=== PATIENT | male | born 1955 | race Caucasian/White ===

== ENCOUNTER 2023-04-22 12:47 | Emergency (ER) | payer MEDICARE, SELFPAY ==
[2023-04-22 12:56] VITALS: BP 115/65; PULSE 76; RESP 18; TEMP 36.6; O2SAT 96; BMI 35.1
--- NOTE | 2023-04-22 12:58 | ECG_ITS ---
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 Measurements Intervals Martin Rate: 75 P: 0 MN: 0 QRS: -37 QRSD: 135 T: 93 QT: 393 QTc: 440 Interpretive Statements ATRIAL FIBRILLATION LEFT AXIS DEVIATION [QRS AXIS < -30] INTRAVENTRICULAR CONDUCTION DELAY [130+ ms QRS DURATION] SEPTAL MYOCARDIAL INFARCTION , OF INDETERMINATE AGE [40+ ms Q WAVE IN V1/V2] No previous ECG available for comparison Electronically Signed On 04-22-2023 16:48:18 CDT by Héctor Santo M.D. [email or web address]
--- NOTE | 2023-04-22 14:04 | XR_ITS ---
WS: [id number] Cervical spine, 3 views, 04/22/2023 Clinical Data: trauma/pain Comparison: None. Findings: There is an anterior cervical disc fusion at C4-C5 with a disc spacer between. No preverteb ral soft tissue swelling is seen. There are no compression fractures. The soft tissues of the neck an d the lung apices are unremarkable. The odontoid is normal. Impression: Anterior cervical disc fusion C4-C6.
[2023-04-22 14:10] VITALS: BP 112/65; PULSE 72; RESP 18; O2SAT 96
--- NOTE | 2023-04-22 14:25 | W.ED.FALL ---
HPI - Fall General: Chief Complaint: Fall Stated Complaint: Fall, neck pain, previous neck surgery Time Seen by Provider: 04/22/23 14:02 Source: patient Mode of arrival: ambulatory History of Present Illness: 68-year-old male presents emergency room complaining of neck pain. He stumbled and fell in a camper at home fell backward where he landed to the wind knocked out of him . He states he is concerned he may have hurt his neck he has had multiple neck surgeries in the past. When he came to the room staff had applied a cervical collar to his neck. MD complaint: fall Onset (ago): hour(s) Fall witnessed: yes, by family Place fall occurred: home Loss of consciousness: None Context: tripped/slipped Associated symptoms-after fall: Reports neck pain; Denies abdominal pain, chest pain, confusion, difficulty walking, headache(s), hematuria, lightheadedness, numbness, short of breath, vertigo or weakness Review of Systems Const: Denies: fever(s) or chills Card: Denies: chest pain or lightheadedness Resp: Denies: dyspnea GI: Denies: abdominal pain : Denies: dysuria, urinary frequency, urinary urgency or hematuria Musc: Reports: neck pain; Denies: back pain Skin/Breast: Denies: rash Neuro: Denies: headache(s), difficulty walking, vertigo or confusion Physical Exam Const: COMMON NORMALS: no acute distress GENERAL APPEARANCE: cooperative and comfortable ORIENTATION/CONSCIOUSNESS: Yes awake, Yes oriented to person, Yes oriented to place and Yes oriented to time HENMT: COMMON NORMALS: normocephalic, atraumatic and hearing grossly normal bilaterally HEAD & SCALP: normocephalic and atraumatic Resp: COMMON NORMALS: normal respiratory effort, No retractions, No use of accessory muscles and clear to auscultation bilaterally AUSCULTATION: clear to auscultation bilaterally Cardio: COMMON NORMALS: regular rate, regular rhythm and No murmurs present (Cardio) RATE: regular rate RHYTHM: regular rhythm GI: COMMON NORMALS: Soft to palpation and No hepatosplenomegaly present AUSCULTATION: Yes normoactive bowel sounds PALPATION: Yes Soft to palpation, No Tenderness to palpation present (GI), No Guarding due to palpation present (GI) and Yes No hepatosplenomegaly present Extremity: COMMON NORMALS: normal to inspection, capillary refill normal, no clubbing, cyanosis or edema, no calf tenderness and no pedal edema Neuro: SENSORIUM/ORIENTATION: Yes oriented to person, Yes oriented to place and Yes oriented to time OTHER: No focal neurologic deficits are noted Skin: COMMON NORMALS: no rashes or lesions noted GENERAL SKIN EXAM: no rashes or lesions noted Course Vital Signs: Vital signs: Vital Signs Temperature 97.8 F 04/22/23 12:56 Pulse Rate 78 04/22/23 15:11 Respiratory Rate 18 04/22/23 14:10 Blood Pressure 112/65 04/22/23 15:11 Pulse Oximetry 95 04/22/23 15:11 Oxygen Delivery Me thod Room Air 04/22/23 14:10 MDM - Fall Medical Decision Making X-rays cervical spine normal c-collar removed range of motion present mild discomfort at most. Can follow-up as needed Medical Records I reviewed the patient's medical records. Lab Data I reviewed the patient's lab results. All radiology interpretation(s) finalized by discharge Discharge Plan Discharge Patient Disposition: Home Clinical Impression: Cervicalgia Condition: Stable Prescriptions: New tizanidine 4 mg tablet 4 mg PO Q6H PRN (Reason: muscle spasticity) Qty: 20 0RF Rx Instructions: do not exceed 3 doses per 24 hrs diclofenac sodium 75 mg tablet,delayed release (DR/EC) 75 mg PO Q12H PRN (Reason: pain) Qty: 20 0RF Discharge Orders: Discharge ED (Routine); Ordered 04/22/23 Ordered By: Jeffrey Dowell Referrals: OUT OF AREA PROVIDERS, [Primary Care Provider] - Discharge Diet: Usual diet Discharge Activity: Increase activity as tolerated Patient Instructions: Opioid Safety, Pain Management Coding Level of Care Code ED Equipment Sales Specialist for Lanette Araujo
[2023-04-22 15:11] VITALS: BP 112/65; PULSE 78; O2SAT 95
== END 2023-04-22 15:12 | disposition home or self-care (01) ==
PROVIDERS: Emergency Provider Family Medicine
DX: M54.2 Cervicalgia (principal)
CPT/HCPCS: 72040; 93005; 99284